=== PATIENT | female | born 1985 | race Caucasian/White ===

== ENCOUNTER 2021-08-26 16:21 | Emergency (ER) | payer OTHER ==
[2021-08-26 17:27] LABS: SODIUM,NA 139 mmol/L (136-145)
[2021-08-26 17:28] LABS: ANION GAP 12.7 mEq/L (7-13); CHLORIDE,CL 102 mmol/L (98-107)
[2021-08-26 17:30] LABS: CORONAVIRUS COVID-19 NAA NEGATIVE (NEGATIVE)
[2021-08-26] MEDS ORDERED: Iopamidol 612 MG/ML 100 ML Bottle IVPUSH ONE (17:45)
== END 2021-08-26 18:48 | disposition home or self-care (01) ==
LOC: DL.ED 16:21
DX: R07.89 Other chest pain (principal); Z20.822 Contact with and (suspected) exposure to COVID-19
CPT/HCPCS: 0240U; 36415; 71045; 74177; 80053; 82150; 83605; 83690; 83880; 85025; 86140; 99285-25; Q9967